=== PATIENT | male | born 2000 | race Caucasian/White ===

== ENCOUNTER 2021-05-25 10:01 | Emergency (ER) | payer MEDICAID, OTHER ==
[~2021-05-25] VITALS: Ht 182 cm; Wt 120.7 kg
[2021-05-25 10:14] VITALS: BP 138/83
--- NOTE | 2021-05-25 10:18 | ED General ---
General Stated Complaint: SYNCOPAL EPISODE History of Present Illness Date Seen by Provider: May 25, 2021 Time Seen by Provider: 10:13 Initial Comments 21-year-old male woke up with diarrhea and nausea. Patient reports that he was on the stool with significant diarrhea following his throw up so he went to throw up when he had a brief syncopal event whacked his head on the toilet. He has a small superficial laceration above his left eyebrow and on his left cheek. Patient son recently had a similar illness. He denies any fever or chills. No abdominal pain, no cough. Patient's last tetanus would have been within the last 5 years. Patient denies any urinary symptoms. No other systemic complaints Allergies and Home Medications Patient Home Medication List Home Medication List Reviewed: Yes Review of Systems Review of Systems Constitutional: No chills, No fever Gastrointestinal: diarrhea, nausea, vomiting Genitourinary: no symptoms reported Musculoskeletal: no symptoms reported Skin: no symptoms reported Psychiatric/Neurological: See HPI Hematologic/Lymphatic: No Symptoms Reported Immunological/Allergic: no symptoms reported Physical Exam Vital Signs Capillary Refill : Height, Weight, BMI Height: '" Weight: lbs. oz. 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 No immediate complication Progress/Results/Core Measures Suspected Sepsis SIRS Temperature: Pulse: Respiratory Rate: Blood Pressure / Mean: Results/Orders Vital Signs/I&O Capillary Refill : Progress Note : Progress Note Patient with a likely viral syndrome with his child recently having similar symptoms with a vasovagal response. Patient was offered extended work-up but felt pain was not warranted. I will give him some nausea medication. He should use a clear liquid diet for the next 24 to 36 hours. Patient stable and disch arged home Departure Impression Primary Impression: Vasovagal syncope Additional Impressions: Viral gastroenteritis Laceration of eyebrow, left Qualified Codes: S01.112A - Laceration without foreign body of left eyelid and periocular area, initial encounter Disposition: HOME, SELF-CARE Condition: Stable Departure-Patient Inst. Referrals: NO,LOCAL PHYSICIAN (PCP) Primary Care Physician Patient Instructions: Vasovagal Response, Viral Gastroenteritis, Adult (DC), Laceration Repair With Glue ED Add. Discharge Instructions: There are liquid diet, advance as tolerated Drink plenty of fluids Scripts Ondansetron (Ondansetron Odt) 4 Mg Tab.rapdis 4 MG PO Q6H PRN for NAUSEA/VOMITING, #20 TAB 0 Refills Prov: LILY MURPHY DO 05/25/21 LILY MURPHY DO May 25, 2021 10:18
[2021-05-25] MEDS ORDERED: ONDA4TAB11 PO (10:28)
== END 2021-05-25 10:35 | disposition home or self-care (01) ==
LOC: ER FS 10:06
DX: S01.112A Laceration without foreign body of left eyelid and periocular area, initial encounter (principal); A08.4 Viral intestinal infection, unspecified; R55 Syncope and collapse; W22.8XXA Striking against or struck by other objects, initial encounter

== ENCOUNTER 2021-08-06 19:17 | Emergency (ER) | payer MEDICAID ==
[~2021-08-06 19:17] MED LIST: ONDA4TAB11 PO
--- NOTE | 2021-08-06 19:48 | ED Cough/URI ---
General Chief Complaint: COVID19 Suspect/Confirmed Stated Complaint: COVID+,FEVER Nursing Triage Note: Pt tested positive for Covid last night. Pt complaining of a headache, fever, and body aches History of Present Illness Date Seen by Provider: Aug 06, 2021 Time Seen by Provider: 19:30 Initial Comments 21-year-old male presents with fever, headache, body aches, nausea and generalized malaise. Patient tested positive for COVID last night. Patient was concerned because his fever got above 102 at home. Patient has no shortness of breath, chest pain or other systemic complaints. Patient's roommate and gi rlfriend both have COVID. Allergies and Home Medications Patient Home Medication List Home Medication List Reviewed: Yes Ondansetron (Ondansetron Odt) 4 Mg Tab.rapdis, 4 MG PO Q6H PRN for N AUSEA/VOMITING Prescribed by: LILY MURPHY on 05/25/21 1028 Review of Systems Review of Systems Constitutional: chills; No dizziness; fever; No malaise Respiratory: cough; No short of breath Cardiovascular: No chest pain, No palpitations Gastrointestinal: No abdominal pain; nausea; No vomiting Genitourinary: no symptoms reported Musculoskeletal: no symptoms reported Skin: no symptoms reported Psychiatric/Neurological: Headache Hematologic/Lymphatic: No Symptoms Reported Past [id number]-[id number]-[id number] Hx Patient Social History Tobacco Use?: No Use of E-Cig and/or Vaping dev: Yes E-Cig or Vaping type used: Nicotine Substance use?: No Alcohol Use?: No Pt feels they are or have been: No Physical Exam Vital Signs - First Documented 08/06/21 19:28 Temp 37.6 Pulse 136 Resp 18 B/P (MAP) 145/63 (90) Pulse Ox 97 O2 Delivery Room Air Capillary Refill : Less Than 3 Seconds Height: '" Weight: lbs. oz. kg; 36.00 BMI Method: General Appearance: WD/WN, no apparent distress HEENT: PERRL/EOMI Neck: full range of motion, supple Respiratory: lungs clear, normal breath sounds Gastrointestinal: non tender, soft Extremities: normal range of motion Neurologic/Psychiatric: no motor/sensory deficits, alert, normal mood/affect, oriented x 3 Skin: normal color, warm/dry Progress/Results/Core Measures Suspected Sepsis SIRS Temperature: Pulse: 136 Respiratory Rate: 18 Blood Pressure 145 /63 Mean: 90 Results/Orders Vital Signs/I&O 08/06/21 19:28 Temp 37.6 Pulse 136 Resp 18 B/P (MAP) 145/63 (90) Pulse Ox 97 O2 Delivery Room Air Capillary Refill : Less Than 3 Seconds Blood Pressure Mean: 90 Departure Impression Primary Impression: COVID-19 Disposition: 01 HOME, SELF-CARE Condition: Stable Departure-Patient Inst. Referrals: NO,LOCAL PHYSICIAN (PCP/Family) Primary Care Physician Patient Instructions: COVID-19 Home Care/Discharge Add. Discharge Instructions: Tylenol or ibuprofen as needed for fever and body Drink plenty of fluids Please monitor your oxygen and if you start feeling short of breath, return with O2 saturations below 91% All discharge instructions reviewed with patient and/or family. Voiced u nderstanding. LILY MURPHY DO Aug 06, 2021 19:48
[2021-08-06 19:50] VITALS: BP 145/63
== END 2021-08-06 19:51 | disposition home or self-care (01) ==
LOC: EDUNIT# 19:17 → ER FS 19:20
DX: U07.1 COVID-19 (principal); F17.290 Nicotine dependence, other tobacco product, uncomplicated; Z73.0 Burn-out
CPT/HCPCS: 99283